=== PATIENT | male | born 2000 | race Caucasian/White ===

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

== ENCOUNTER → 2022-01-19 | Outpatient (REF) | payer BC ==
[~2022-01-19] MED LIST: ALLE24TA7 PO; CELE20TA PO; FLUT44IN INH; PERCOCET PO; VENTAER INH
== END ==
LOC: M LAB REF 16:11
PROVIDERS: ATTEND Student in an Organized Health Care Education/Training Program
DX: J06.9 Acute upper respiratory infection, unspecified (principal)

== ENCOUNTER → 2022-02-14 | Outpatient (REF) | payer BC ==
[2022-02-14 22:19] LABS: RSV AMPLIFICATION NEGATIVE (NEGATIVE)
== END ==
LOC: M WUC 21:03
PROVIDERS: ATTEND Physician Assistant
DX: J06.9 Acute upper respiratory infection, unspecified (principal)